=== PATIENT | female | born 2005 | race Caucasian/White ===

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

== ENCOUNTER 2023-02-06 16:15 | Emergency (ER) | payer OTHER ==
[2023-02-06 16:22] VITALS: BP 118/66; PULSE 85; RESP 18; TEMP 98; BMI 38.0
[2023-02-06 18:31] LABS: BASO % 0.4 % (0-2.0); EOS % 0.5 % (0-4.5); HEMATOCRIT 39.7 % (32.4-45.2); HEMOGLOBIN 12.9 GM/dL (10.7-15.3); LYMPH % 31.4 % (8-40); MCH 28.2 pg (25.7-33.7); MCHC 32.4 g/dl (32.0-36.0); MEAN CELL VOLUME 87.2 fl (80-96); MEAN PLT VOLUME 8.6 fl (7.5-11.1); MONO % 2.7 % (3.8-10.2); PLATELET COUNT 348 10^3/uL (134-434); RBC 4.56 M/mm3 (3.60-5.2); WHITE BLOOD COUNT 8.3 K/mm3 (4.0-10.0)
[2023-02-06 18:39] LABS: INR 1.2 (0.83-1.09); PROTHROMBIN TIME (PATIENT) 13.9 SEC (9.7-13.0)
[2023-02-06 18:42] LABS: ACTIVATED PTT 32.1 SECONDS (25.2-36.5); POTASSIUM 4.2 mmol/L (3.5-5.1)
[2023-02-06 18:44] LABS: CALCIUM 8.5 mg/dL (8.5-10.1)
[2023-02-06 18:45] LABS: ALBUMIN 3.3 g/dl (3.4-5.0); BLOOD UREA NITROGEN 7.8 mg/dL (7-18)
[2023-02-06 18:48] LABS: CREATININE 0.4 mg/dL (0.55-1.3)
[2023-02-06 18:49] LABS: BILIRUBIN,TOTAL 0.3 mg/dL (0.2-1)
[2023-02-06 18:50] LABS: TOT PROT 7.2 g/dl (6.4-8.2)
[2023-02-06 21:40] LABS: URINE APPEARANCE CLEAR; URINE BILIRUBIN NEGATIVE (NEGATIVE); URINE COLOR YELLOW; URINE GLUCOSE (UA) NEGATIVE (NEGATIVE); URINE KETONE NEGATIVE (NEGATIVE); URINE LEUK ESTERASE NEGATIVE (NEGATIVE); URINE NITRITE NEGATIVE (NEGATIVE); URINE PROTEIN NEGATIVE (NEGATIVE)
== END 2023-02-06 22:12 | disposition home or self-care (01) ==
LOC: JER 16:15
DX: O21.9 Vomiting of pregnancy, unspecified (principal); O34.80 Maternal care for other abnormalities of pelvic organs, unspecified trimester; N83.201 Unspecified ovarian cyst, right side; Z3A.00 Weeks of gestation of pregnancy not specified
CPT/HCPCS: 36415; 76830-TC; 80053; 81003; 84702; 85025; 85610; 85730; 86850; 86900; 86901; 87086; 99284-25

== ENCOUNTER 2024-06-26 13:53 | Emergency (ER) | payer OTHER ==
[2024-06-26 14:04] VITALS: BP 119/64; PULSE 84; RESP 18; TEMP 97.8; BMI 39.3
[2024-06-26] MEDS ORDERED: ACETAMINOPHEN 500 MG TABLET (FP) ONE (15:38)
[2024-06-26] MEDS: ACETAMINOPHEN 500 MG TABLET (FP) PO ONE (15:41)
== END 2024-06-26 16:33 | disposition left against medical advice (07) ==
LOC: JER 13:53 → JERFT 13:53
DX: S93.402A Sprain of unspecified ligament of left ankle, initial encounter (principal); W10.8XXA Fall (on) (from) other stairs and steps, initial encounter
CPT/HCPCS: 73610-TC-LT-FY; 82962; 99284-25

== ENCOUNTER 2024-10-28 16:14 | Emergency (ER) | payer OTHER ==
[2024-10-28 16:41] VITALS: RESP 19; BMI 42.0
[2024-10-28 17:45] LABS: ABSOLUTE IMMATURE GRANULOCYTES 0.02 x10^3/uL (0.0-0.031); BASOPHILS # 0.04 x10^3/uL (0.01-0.08); EOSINOPHIL % 0.3 % (0.7-5.8); EOSINOPHILS # 0.02 x10^3/uL (0.04-0.36); HEMATOCRIT 40.3 % (34.1-44.9); MCHC 32.3 g/dl (32.2-35.5); MEAN PLT VOLUME 9.4 fl (9.4-12.3); MONOCYTE # 0.37 x10^3/uL (0.24-0.86); MONOCYTE % 4.8 % (4.7-12.5); PLATELET COUNT 325 x10^3/uL (182-369); RDW 12.8 % (12.1-16.5)
[2024-10-28] MEDS ORDERED: ACETAMINOPHEN INJECTION 100 ML ONE (17:46)
[2024-10-28] MEDS ORDERED: METHOCARBAMOL 500 MG TABLET ONE (17:46)
[2024-10-28] MEDS: ACETAMINOPHEN 1000 MG/100 ML BAG IVPB ONE (17:51)
[2024-10-28 17:52] LABS: INR 1.33 (0.83-1.09); PROTHROMBIN TIME (PATIENT) 14.5 SEC (9.7-13.0)
[2024-10-28] MEDS: METHOCARBAMOL 500 MG TABLET PO ONE (17:52)
[2024-10-28 18:04] LABS: POTASSIUM 4.3 mmol/L (3.5-5.1)
[2024-10-28 18:07] LABS: ALBUMIN 3.6 g/dl (3.4-5.0); CALCIUM 9.4 mg/dL (8.5-10.1)
[2024-10-28 18:08] LABS: BLOOD UREA NITROGEN 10.8 mg/dL (7-18); PH,URINE 5.5 (5.0-8.0); URINE APPEARANCE Error; URINE BILIRUBIN NEGATIVE (NEGATIVE); URINE COLOR YELLOW; URINE GLUCOSE (UA) NEGATIVE (NEGATIVE); URINE KETONE TRACE (NEGATIVE); URINE LEUK ESTERASE NEGATIVE (NEGATIVE); URINE NITRITE NEGATIVE (NEGATIVE); URINE PROTEIN NEGATIVE (NEGATIVE)
[2024-10-28 18:09] LABS: CREATININE 0.5 mg/dL (0.55-1.3)
[2024-10-28 18:12] LABS: BILIRUBIN,TOTAL 0.8 mg/dL (0.2-1); TOT PROT 7.6 g/dl (6.4-8.2)
[2024-10-28 19:03] LABS: HIV INTERPRETATION NEGATIVE (NEGATIVE)
[2024-10-28 19:05] LABS: HCV DIAGNOSTIC IN-HOUSE W/RFLX NON-REACTIVE (NONREACTIVE)
[2024-10-28] MEDS ORDERED: CLINDAMYCIN 600MG PREMIX IVPB 600 MG/50 ML BAG IVPB ONE (20:41)
[2024-10-28] MEDS: CLINDAMYCIN 600MG PREMIX IVPB 600 MG/50 ML BAG IVPB ONE (20:48)
[2024-10-28 22:40] VITALS: BP 142/90; PULSE 78; TEMP 98.6
== END 2024-10-28 22:40 | disposition home or self-care (01) ==
LOC: JER 16:14
PROC: 3E03329 Introduction of Other Anti-infective into Peripheral Vein, Percutaneous Approach (ICD-10-PCS; principal; 2024-10-28)
PROC: 3E033NZ Introduction of Analgesics, Hypnotics, Sedatives into Peripheral Vein, Percutaneous Approach (ICD-10-PCS; 2024-10-28)
DX: S02.32XA Fracture of orbital floor, left side, initial encounter for closed fracture (principal); S00.81XA Abrasion of other part of head, initial encounter; R55 Syncope and collapse; M54.2 Cervicalgia; R10.84 Generalized abdominal pain; M25.511 Pain in right shoulder; R11.10 Vomiting, unspecified; H53.2 Diplopia; R14.0 Abdominal distension (gaseous); H53.8 Other visual disturbances; Y04.8XXA Assault by other bodily force, initial encounter
CPT/HCPCS: 36415; 70450-TC; 70486-TC; 71046-TC-FY; 72125-TC; 73000-TC-RT-FY; 73030-TC-RT-FY; 74177-TC; 80053; 81003; 84703; 85025; 85610; 86803; 86850; 86900; 86901; 87086; 87389; 93005; 93010; 99285-25; J0131; Q9967

== ENCOUNTER 2025-01-22 19:15 | Emergency (ER) | payer OTHER ==
[2025-01-22 19:19] VITALS: BP 126/65; PULSE 84; RESP 17; TEMP 98.4; BMI 42.0
== END 2025-01-22 20:19 | disposition home or self-care (01) ==
LOC: JERFT 19:15
DX: Z48.02 Encounter for removal of sutures (principal)
CPT/HCPCS: 99281-25

== ENCOUNTER 2025-02-12 20:21 | Emergency (ER) | payer OTHER ==
[2025-02-12 20:28] VITALS: BP 111/76; PULSE 112; RESP 20; TEMP 98.2; BMI 42.4
[2025-02-12] MEDS ORDERED: ACETAMINOPHEN 500 MG TABLET (FP) ONE (20:36)
[2025-02-12] MEDS: ACETAMINOPHEN 500 MG TABLET (FP) PO ONE (21:03)
== END 2025-02-12 22:17 | disposition home or self-care (01) ==
LOC: JERFT 20:21
DX: J02.9 Acute pharyngitis, unspecified (principal); R00.0 Tachycardia, unspecified; J03.90 Acute tonsillitis, unspecified
CPT/HCPCS: 87637-QW; 87651; 99283-25